=== PATIENT | male | born 1975 | race Caucasian/White ===

== ENCOUNTER 2016-11-23 12:01 | Emergency (ER) | payer OTHER ==
[~2016-11-23] VITALS: Ht 182.9 cm; Wt 108.7 kg
[2016-11-23 12:05] VITALS: PULSE 85; Ht 182.9 cm; Wt 108.7 kg
[2016-11-23] MEDS ORDERED: DULO60CA44 PO (12:50)
--- NOTE | 2016-11-23 12:54 | DIAGNOSTIC IMAGING REPORT ---
L-SPINE MIN 4 VIEWS ROUTINE CLINICAL HISTORY: Low back pain. History of surgery. COMPARISON: None FINDINGS: There is slight rightward curvature of the lumbar spine. Vertebral body heights are maintained. There is no fracture or suspicious lesion. There is minimal disc space narrowing at L5-S1 with mild osteophytosis. Pelvic calcifications likely reflect phleboliths. IMPRESSION: 1. No acute lumbar spine fracture or subluxation. 2. Mild degenerative disc disease at L5-S1. Electronically signed by: Greyson Millan M.D. 11/23/2016 12:53 PM Dictated Date/Time: 11/23/2016 12:52 PM
[2016-11-23] MEDS ORDERED: PRED20TA PO (13:29)
[2016-11-23] MEDS ORDERED: HYDR-5688 PO (13:29)
--- NOTE | 2016-11-23 13:31 | EMERGENCY ROOM VISIT NOTE ---
ED Visit Note First contact with patient: 12:08 CHIEF COMPLAINT: Low back pain HISTORY OF PRESENT ILLNESS: This 41-year-old male patient presents to the emergency department ambulatory complaining of pain in the low back which began 4 days ago. The patient states he has a remote history of back surgery approximately 10 years ago. This was performed by a surgeon in [place]. The patient states that he believes he may have exacerbated his back pain while lifting heavy objects with his father. The pain was gradual in onset, is now constant and worse with movement. The patient notes the pain as sharp and a 9/ 10. He states the pain radiates into the right leg. The patient has taken Motrin and Tylenol without relief of the pain. The patient denies any loss of control of their bowel or bladder functions. There has been no leg numbness or weakness, and no change in sensation. No nausea or vomiting or abdominal pain. No chest pain or shortness of breath. No dysuria or increased urinary frequency. REVIEW OF SYSTEMS: A review of systems was performed with positives and pertinent negatives listed in the history of present illness. All other systems were reviewed and are negative. ALLERGIES: No known drug allergies MEDICATIONS: Cymbalta PMH: Back surgery SOCIAL HISTORY: The patient lives locally with family. He is a smoker. PHYSICAL EXAM: VITALS: Vitals are noted on the nurse's note and reviewed by myself. Vital signs stable. GENERAL: This is a 41-year-old male, in no acute distress, nondiaphoretic, well- developed well-nourished. SKIN: The skin was without rashes, erythema, edema, or bruising. Capillary refill less than 2 seconds. NECK: Supple without nuchal rigidity. No cervical spine tenderness. No paraspinous muscle tenderness. HEART: Regular rate and rhythm without murmurs gallops or rubs. LUNGS: Clear to auscultation bilaterally without wheezes, rales or rhonchi. ABDOMEN: Positive bowel sounds x 4. Soft, nontender, without masses or organomegaly. Davis sign negative. MUSCULOSKELETAL: No muscle atrophy, erythema, or edema noted of the back. There is no tenderness over the lumbar spinous processes. There is tenderness over the right lumbar paraspinous muscles. There is no tenderness over the thoracic spine or paraspinous muscles. There are no muscle spasms present. The patient is slow to move around with maximum tenderness with flexion. Negative straight leg raise test. NEURO: Patient was alert and oriented to person place and time. Normal sensation to light and sharp touch. Deep tendon reflexes 2+ in the lower extremities. Dorsalis pedis pulse 2+ bilaterally. Strength 5/5 and equal in the bilateral lower extremities. RADIOGRAPHIC FINDINGS: L-SPINE MIN 4 VIEWS ROUTINE CLINICAL HISTORY: Low back pain. History of surgery. COMPARISON: None FINDINGS: There is slight rightward curvature of the lumbar spine. Vertebral body heights are maintained. There is no fracture or suspicious lesion. There is minimal disc space narrowing at L5-S1 with mild osteophytosis. Pelvic calcifications likely reflect phleboliths. IMPRESSION: 1. No acute lumbar spine fracture or subluxation. 2. Mild degenerative disc disease at L5-S1. EMERGENCY DEPARTMENT COURSE: The patient was evaluate as above. X-rays of the lumbar spine were obtained and read by radiology with no acute findings. The [place] prescription drug monitoring program was queried. The patient did receive a prescription for Suboxone last month from a provider in [place]. I did confront the patient about this and he reported that he was seeing a provider in [place], where his son lives and he prescribed Suboxone for shoulder pain. He reports he has not taken this medication for his pain. The patient was forthcoming about his prescriptions and therefore he was given a very short course of [place] for pain. He was also given a prescription for prednisone. He was instructed to follow-up with his back surgeon for further evaluation of his back pain. DIAGNOSIS: Low back pain Current/Historical Medications Scheduled Duloxetine Hcl (Cymbalta), 1 CAP PO DAILY Prednisone (Prednisone), 0 PO DAILY Scheduled PRN Hydrocodone/Acetaminophen 5MG/325MG ([place] 5MG/325MG), 1 TABLET PO Q6H PRN for Pain Allergies Coded Allergies: No Known Allergies (Unverified , 11/23/16) Vital Signs Date Time Temp Pulse Resp B/P Pulse Ox O2 Delivery O2 Flow Rate FiO2 11/23/16 13:36 36.3 16 144/108 99 11/23/16 12:05 36.5 85 20 145/94 97 Room Air Departure Information Impression Primary Impression: Lumbar radiculopathy Dispostion Home / Self-Care Condition GOOD Prescriptions Hydrocodone/Acetaminophen 5MG/325MG ([place] 5MG/325MG) Tab 1 TABLET PO Q6H Y for Pain, #8 TAB For Initial Treatment Prov: Kami Meadows .BHAVIN 11/23/16 Prednisone (Prednisone) 20 Mg Tab 0 PO DAILY, #18 TAB 3 DAILY FOR 3 DAYS, THEN 2 DAILY FOR 3 DAYS, THEN 1 DAILY FOR 3 DAYS. Prov: Kami eMadows PA-C 11/23/16 Referrals No Doctor, Assigned (PCP) Wali Mccrary M.D. Patient Instructions [facility] Additional Instructions You have been treated in the Emergency Department for Back Pain. You have been prescribed [place] to be used for pain control. This is a narcotic medication. You cannot drive or consume alcohol while on this medicine. This medicine should only be used for pain that cannot be controlled with over-the- counter pain medicines. You have been prescribed Prednisone. This is a steroid which will help decrease your inflammation. Take this medicine as prescribed. Take the ENTIRE course. It is best to take steroids early in the morning as PM dosing can affect your sleeping patterns. For pain control, you can use the following chbi-vfs-wstxyes medicines (if >12 yo): - Regular strength (325mg/tab) Tylenol (acetaminophen) 2 tabs every 4-6 hours as needed. Do not exceed 12 tablets in a 24 hour period. Avoid taking more than 4 grams (4000 mg) of Tylenol per day. This includes any other sources of acetaminophen you may take on a regular basis. - Regular strength (200 mg/tab) Advil (ibuprofen) 1-2 tabs every 4-6 hours as needed. Do not exceed a dose of 3200 mg per day. If this is an acute injury, ice can be applied to the area of pain for the first 3 days to help decrease pain and inflammation. After the first 3 days, a heating pad can be used over the area for continued soothing relief. You should schedule a follow-up appointment in 2-3 days with your Primary Care Provider for further evaluation and treatment of your back pain. You have also been provided with the contact information for an orthopedic transmission specialist. Return to the Emergency Department if your current symptoms worsen despite treatment course outlined above, or if you develop any of the following symptoms : intractable pain despite aforementioned treatment course, loss of control of your bowel or bladder, numbness or tingling in your groin, or development of a fever.
[2016-11-23 13:36] VITALS: BP 144/108; TEMP 36.3; O2SAT 99
== END 2016-11-23 13:42 | disposition home or self-care (01) ==
LOC: C.EDB 12:03 → C.EDD 13:42
DX: M54.5 Low back pain (principal); M54.16 Radiculopathy, lumbar region; F17.200 Nicotine dependence, unspecified, uncomplicated; Z79.899 Other long term (current) drug therapy; Z98.890 Other specified postprocedural states